=== PATIENT | female | born 1930 | race Caucasian/White ===

== ENCOUNTER → 2016-08-28 | Outpatient (CLI) | payer MEDICARE ==
[~2016-08-28] MED LIST: ALBU8.5H6 IH; ASPI-586 PO; BUDE10.2 IH; CEPH500T PO; CLON0.5T3 PO; FURO-124 PO; GBPN100C PO; GLIM4TAB PO; GLUC-132 PO; HYDR1TABED PO; INSU100I23 SC; INSU100V32 SC; LEVO112T4 PO; MAGN250T7 PO; METF500T4 PO; METO25TA60 PO; MULT1TAB69 PO; POTA10CA43 PO; PRD10T PO; [UNRECOGNIZED DRUG - OTHER] SQ
[2016-08-28 08:39] LABS: ANION GAP 13.2 MEQ/L (3-15); CALCULATED IONIZED CALCIUM 4.1 mg/dL (3.8-4.6); TOTAL PROTEIN 7.3 g/dL (6.4-8.5)
[2016-08-28 09:03] LABS: BILIRUBIN,URINE Negative (Negative); CLARITY,URINE Clear; COLOR,URINE Yellow; GLUCOSE, URINE (UA) Negative (Negative); LEUKOCYTE ESTERASE ,URINE 1+ (Negative); UROBILINOGEN,URINE 0.2 mg/dL (0.2-1.0)
[2016-08-28 09:11] LABS: RBC,URINE 0-2 /HPF; URINE CENTRIFUGED VOLUME <10mL Unspun
== END ==
LOC: LAB 06:59
PROVIDERS: ATTEND Family Medicine
DX: E10.9 Type 1 diabetes mellitus without complications (principal); M35.3 Polymyalgia rheumatica; R82.99 Other abnormal findings in urine
CPT/HCPCS: 36415; 80053; 81003; 81015; 82043; 83036; 84443; 85652; 87077; 87088; 87186

== ENCOUNTER → 2016-09-19 | Outpatient (CLI) | payer MEDICARE | LOC: RAD 08:24 | PROVIDERS: ATTEND Family Medicine | DX: R10.84 Generalized abdominal pain (principal); I51.7 Cardiomegaly | CPT/HCPCS: 74178; Q9967 ==

== ENCOUNTER → 2016-12-03 | Outpatient (CLI) | payer MEDICARE ==
[2016-12-03 08:07] LABS: ANION GAP 14.1 MEQ/L (3-15)
== END ==
LOC: LAB 07:32
PROVIDERS: ATTEND Family Medicine
DX: E01.8 Other iodine-deficiency related thyroid disorders and allied conditions (principal); E10.9 Type 1 diabetes mellitus without complications
CPT/HCPCS: 36415; 80048; 83036; 84443